=== PATIENT | male | born 1995 | race African-American/Black ===

== ENCOUNTER 2020-04-24 14:57 | Emergency (ER) | payer SELFPAY ==
[~2020-04-24] VITALS: Ht 182.9 cm; Wt 97.5 kg
[2020-04-24 15:08] VITALS: Ht 182.9 cm; Wt 97.5 kg
[2020-04-24 16:02] VITALS: BP 134/85
== END 2020-04-24 16:02 | disposition home or self-care (01) ==
LOC: ED 14:57
DX: S81.811D Laceration without foreign body, right lower leg, subsequent encounter (principal); X58.XXXD Exposure to other specified factors, subsequent encounter